=== PATIENT | female | born 1980 | race Caucasian/White ===

== ENCOUNTER 2019-07-30 14:13 | Inpatient (IN) | payer OTHER ==
[2019-07-30 14:52] VITALS: BMI 18.8
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
[2019-07-30] MEDS ORDERED: BISMUTH SUBSALICYLATE 524 MG/30 ML UD PO PRN (17:11)
[2019-07-30] MEDS ORDERED: MAGNESIUM HYDROX 2400MG/30ML ORAL SUSPENSION 30 ML CUP PO PRN (17:11)
[2019-07-30] MEDS ORDERED: cloNIDine HCL 0.1 MG TABLET PO PRN (17:11)
[2019-07-30] MEDS ORDERED: MAGNESIUM CITRATE 300 ML BOTTLE PO PRN (17:11)
[2019-07-30] MEDS ORDERED: MELATONIN 5 MG TABLETS PO PRN (17:11)
[2019-07-30] MEDS ORDERED: MAG HYDROX/AL HYDROX/SIMETH 30 ML UNIT-DOSE CUP PO PRN (17:11)
[2019-07-30] MEDS ORDERED: hydrOXYzine PAMOATE 25 MG CAPSULE (FP) PO PRN (17:11)
[2019-07-30] MEDS ORDERED: METHOCARBAMOL 500 MG TABLET PO PRN (17:11)
[2019-07-30] MEDS ORDERED: IBUPROFEN 400 MG TABLET (FP) PO PRN (17:11)
[2019-07-30] MEDS ORDERED: MENTHOL/PHENOL 1 EACH UD MM PRN (17:11)
[2019-07-30] MEDS ORDERED: ACETAMINOPHEN 325 MG TABLET (FP) PO PRN ×2 (17:11)
[2019-07-30] MEDS ORDERED: METHADONE HCL 10 MG TABLET (FOR DETOX USE ONLY) PO ONE (18:15)
[2019-07-30] MEDS: THIAMINE HCL 100 MG TABLET (FP) PO SCH (22:34)
[2019-07-31] MEDS ORDERED: METHADONE HCL 5 MG TABLET (FOR DETOX USE ONLY) ONE (08:22)
[2019-07-31] MEDS ORDERED: METHADONE HCL 10 MG TABLET (FOR DETOX USE ONLY) ONE (08:22)
[2019-07-31 09:51] LABS: HEMATOCRIT 38.1 % (32.4-45.2); HEMOGLOBIN 12.6 GM/dL (10.7-15.3); MCH 28.5 pg (25.7-33.7); MCHC 33.1 g/dl (32.0-36.0); MEAN CELL VOLUME 86.2 fl (80-96); MEAN PLT VOLUME 10.4 fl (7.5-11.1); PLATELET COUNT 272 K/MM3 (134-434); RBC 4.42 M/mm3 (3.60-5.2); RDW 14.5 % (11.6-15.6); WHITE BLOOD COUNT 10.8 K/mm3 (4.0-10.0)
[2019-07-31] MEDS ORDERED: METHADONE (DETOX) 20 MG, METHADONE (DETOX) 5 MG PO ONE (10:00)
[2019-07-31 10:20] LABS: ALBUMIN 3.2 g/dl (3.4-5.0); BILIRUBIN,TOTAL 0.2 mg/dL (0.2-1); BLOOD UREA NITROGEN 14.9 mg/dL (7-18); CALCIUM 8.3 mg/dL (8.5-10.1); CREATININE 0.7 mg/dL (0.55-1.3); POTASSIUM 4.6 mmol/L (3.5-5.1); TOT PROT 5.7 g/dl (6.4-8.2)
[2019-07-31] MEDS: PRENATAL VITAMINS W/ FOLIC ACID TABLET (FP) PO SCH (10:48)
[2019-07-31] MEDS ORDERED: diazePAM 5 MG TABLET PO PRN (12:42)
--- NOTE | 2019-07-31 12:49 | PN ---
S COWS - Scale Resting Pulse: 0= [place] 80 or Below Sweatin= No chills or Flushing Restless Observation: 1= Difficult to Sit Still Pupil Size: 1= Pupils >than Normal Bone or Joint Aches: 2= Severe Diffuse Aches Runny Nose/ Eye Tearin= Runny Nose/Eyes GI Upset > 30mins: 2= Nausea/Diarrhea Tremor Observation of Outstretched Hands: 2= Slight Tremor Visible Yawning Observation: 1= 1-2x During Session Anxiety or Irritability: 2=Irritable/Anxious Goose Flesh Skin: 0=Smooth Skin COWS Score: 13 S Progress Note (SOAP) Subjective: alert,irritable,anxious,interrupted sleep,tremir,pain in the body and back Objective: 07/31/19 12:45 Vital Signs Temperature 96.4 F L 07/31/19 09:17 Pulse Rate 64 07/31/19 09:17 Respiratory Rate 18 07/31/19 09:17 Blood Pressure 93/58 L 07/31/19 09:17 O2 Sat by Pulse Oximetry (%) Laboratory Last Values WBC 10.8 K/mm3 (4.0-10.0) H 07/31/19 07:10 RBC 4.42 M/mm3 (3.60-5.2) 07/31/19 07:10 Hgb 12.6 GM/dL (10.7-15.3) 07/31/19 07:10 Hct 38.1 % (32.4-45.2) 07/31/19 07:10 MCV 86.2 fl (80-96) 07/31/19 07:10 MCH 28.5 pg (25.7-33.7) 07/31/19 07:10 MCHC 33.1 g/dl (32.0-36.0) 07/31/19 07:10 RDW 14.5 % (11.6-15.6) 07/31/19 07:10 Plt Count 272 K/MM3 (134-434) 07/31/19 07:10 MPV 10.4 fl (7.5-11.1) 07/31/19 07:10 Sodium 139 mmol/L (136-145) 07/31/19 07:10 Potassium 4.6 mmol/L (3.5-5.1) 07/31/19 07:10 Chloride 107 mmol/L (98-107) 07/31/19 07:10 Carbon Dioxide 31 mmol/L (21-32) 07/31/19 07:10 Anion Gap 2 MMOL/L (8-16) L 07/31/19 07:10 BUN 14.9 mg/dL (7-18) 07/31/19 07:10 Creatinine 0.7 mg/dL (0.55-1.3) 07/31/19 07:10 Est GFR (CKD-EPI)AfAm 127.39 07/31/19 07:10 Est GFR (CKD-EPI)NonAf 109.91 07/31/19 07:10 Random Glucose 76 mg/dL (74-106) 07/31/19 07:10 Calcium 8.3 mg/dL (8.5-10.1) L 07/31/19 07:10 Total Bilirubin 0.2 mg/dL (0.2-1) 07/31/19 07:10 AST 24 U/L (15-37) 07/31/19 07:10 ALT 28 U/L (13-61) 07/31/19 07:10 Alkaline Phosphatase 89 U/L (45-117) 07/31/19 07:10 Total Protein 5.7 g/dl (6.4-8.2) L 07/31/19 07:10 Albumin 3.2 g/dl (3.4-5.0) L 07/31/19 07:10 POC Urine HCG, Qual Negative 07/30/19 15:50 RPR Titer Nonreactive (NONREACTIVE) 07/31/19 07:10 Assessment: 07/31/19 12:46 withdrawal symptom Plan: continue detox,wbc 10,800,possible dehydration,advise plenty of fluid,continue methadone regimen,repeat cbc in am, add valium 10 mgs po q4hrs prn for 72 hrs
--- NOTE | 2019-07-31 16:30 | CONSULT ---
[facility] Psychiatric Consult - Data Date of interview: 07/31/19 Admission source: [facility] Identifying data: Patient is approached at bedside for psychiatric interview. Ms Cerda declined TWICE. Nursing staff is made aware.
[2019-07-31] MEDS: THIAMINE HCL 100 MG TABLET (FP) PO SCH (22:25)
[2019-08-01] MEDS ORDERED: METHADONE HCL 10 MG TABLET (FOR DETOX USE ONLY) PO ONE (10:00)
--- NOTE | 2019-08-01 10:17 | PN ---
[facility] COWS - Scale Resting Pulse: 0= [place] 80 or Below Sweatin= Chills/Flushing Restless Observation: 0= Sits Still Pupil Size: 1= Pupils >than Normal Bone or Joint Aches: 1= Mild Discomfort Runny Nose/ Eye Tearin= Nasal Congestion GI Upset > 30mins: 1= Stomach Cramp Tremor Observation of Outstretched Hands: 2= Slight Tremor Visible Yawning Observation: 1= 1-2x During Session Anxiety or Irritability: 2=Irritable/Anxious Goose Flesh Skin: 0=Smooth Skin COWS Score: 10 [facility] Progress Note (SOAP) Subjective: 38 years old female admitted on 07/30/19 for opiate withdrawal sx management treated with methadone detox regimen ate breakfast tolerated food and fluid well resting on bed feeling tired discuss medication assisted treatment program Objective: 08/01/19 10:17 Vital Signs Temperature 97.1 F L 08/01/19 09:36 Pulse Rate 67 08/01/19 09:36 Respiratory Rate 18 08/01/19 09:36 Blood Pressure 99/47 L 08/01/19 09:36 O2 Sat by Pulse Oximetry (%) Laboratory Last Values WBC 10.8 K/mm3 (4.0-10.0) H 07/31/19 07:10 RBC 4.42 M/mm3 (3.60-5.2) 07/31/19 07:10 Hgb 12.6 GM/dL (10.7-15.3) 07/31/19 07:10 Hct 38.1 % (32.4-45.2) 07/31/19 07:10 MCV 86.2 fl (80-96) 07/31/19 07:10 MCH 28.5 pg (25.7-33.7) 07/31/19 07:10 MCHC 33.1 g/dl (32.0-36.0) 07/31/19 07:10 RDW 14.5 % (11.6-15.6) 07/31/19 07:10 Plt Count 272 K/MM3 (134-434) 07/31/19 07:10 MPV 10.4 fl (7.5-11.1) 07/31/19 07:10 Sodium 139 mmol/L (136-145) 07/31/19 07:10 Potassium 4.6 mmol/L (3.5-5.1) 07/31/19 07:10 Chloride 107 mmol/L (98-107) 07/31/19 07:10 Carbon Dioxide 31 mmol/L (21-32) 07/31/19 07:10 Anion Gap 2 MMOL/L (8-16) L 07/31/19 07:10 BUN 14.9 mg/dL (7-18) 07/31/19 07:10 Creatinine 0.7 mg/dL (0.55-1.3) 07/31/19 07:10 Est GFR (CKD-EPI)AfAm 127.39 07/31/19 07:10 Est GFR (CKD-EPI)NonAf 109.91 07/31/19 07:10 Random Glucose 76 mg/dL (74-106) 07/31/19 07:10 Calcium 8.3 mg/dL (8.5-10.1) L 07/31/19 07:10 Total Bilirubin 0.2 mg/dL (0.2-1) 07/31/19 07:10 AST 24 U/L (15-37) 07/31/19 07:10 ALT 28 U/L (13-61) 07/31/19 07:10 Alkaline Phosphatase 89 U/L (45-117) 07/31/19 07:10 Total Protein 5.7 g/dl (6.4-8.2) L 07/31/19 07:10 Albumin 3.2 g/dl (3.4-5.0) L 07/31/19 07:10 POC Urine HCG, Qual Negative 07/30/19 15:50 RPR Titer Nonreactive (NONREACTIVE) 07/31/19 07:10 lab noted Assessment: 08/01/19 10:17 opiate withdrawal sx Plan: continue methadone detox regimen
[2019-08-01] MEDS: PRENATAL VITAMINS W/ FOLIC ACID TABLET (FP) PO SCH (10:40)
[2019-08-01 13:30] VITALS: BP 115/59; PULSE 69; TEMP 96.6
[2019-08-02] MEDS ORDERED: METHADONE (DETOX) 10 MG, METHADONE (DETOX) 5 MG PO ONE (10:00)
[2019-08-03] MEDS ORDERED: METHADONE HCL 10 MG TABLET (FOR DETOX USE ONLY) PO ONE (10:00)
[2019-08-04] MEDS ORDERED: METHADONE HCL 5 MG TABLET (FOR DETOX USE ONLY) PO ONE (06:00)
== END 2019-08-01 17:55 | disposition left against medical advice (07) | DRG 770 ==
LOC: YASAS 14:13 → Y3N 17:42
PROVIDERS: ADMIT Allergy & Immunology; ATTEND Allergy & Immunology
PROC: HZ2ZZZZ Detoxification Services for Substance Abuse Treatment (ICD-10-PCS; principal; 2019-07-30)
DX: F11.23 Opioid dependence with withdrawal (principal); F14.20 Cocaine dependence, uncomplicated; F17.210 Nicotine dependence, cigarettes, uncomplicated; F31.9 Bipolar disorder, unspecified; J45.909 Unspecified asthma, uncomplicated; Z86.2 Personal history of diseases of the blood and blood-forming organs and certain disorders involving the immune mechanism; Z87.81 Personal history of (healed) traumatic fracture; Z88.2 Allergy status to sulfonamides; Z91.013 Allergy to seafood; Z91.5 Personal history of self-harm; Z59.0 Homelessness
CPT/HCPCS: 36415; 80053; 81025; 85027; 86593

== ENCOUNTER 2019-09-04 23:36 | Inpatient (IN) | payer OTHER ==
--- NOTE | 2019-09-04 19:11 | HP ---
COWS - Scale Resting Pulse: 0= [place] 80 or Below Sweatin= No chills or Flushing Restless Observation: 5= Unable to Sit Still Pupil Size: 0= Normal to Room Light Bone or Joint Aches: 4=Acute Joint/Muscle Pain Runny Nose/ Eye Tearin= Nasal Congestion GI Upset > 30mins: 0= None Tremor Observation: 0= None Yawning Observation: 0= None Anxiety or Irritability: 4=Extreme Anxiety Goose Flesh Skin: 0=Smooth Skin COWS Score: 14 CIWA Score - Admission Criteria OASAS Guidelines: Admission for Medically Managed Detox: Requires at least one of the followin. CIWA greater than 12 2. Seizures within the past 24 hours 3. Delirium tremens within the past 24 hours 4. Hallucinations within the past 24 hours 5. Acute intervention needed for co occurring medical disorder 6. Acute intervention needed for co occurring psychiatric disorder 7. Severe withdrawal that cannot be handled at a lower level of care (continued vomiting, continued diarrhea, abnormal vital signs) requiring intravenous medication and/or fluids 8. Admitting History and Physical - Smoking History Smoking history: Current every day smoker Have you smoked in the past 12 months: Yes Aproximately how many cigarettes per day: 20 - Alcohol/Substance Use Hx Alcohol Use: No Admission ROS S - HPI Chief Complaint: SEEKING HEROIN DETOX Allergies/Adverse Reactions: Allergies Allergy/AdvReac Type Severity Reaction Status Date / Time Fish Containing Products Allergy Intermediate Hives Verified 09/04/19 17:42 shellfish derived Allergy Intermediate Hives Verified 09/04/19 17:42 Sulfa (Sulfonamide Allergy Intermediate Hives Verified 09/04/19 17:42 Antibiotics) sulfamethoxazole Allergy Intermediate Hives Verified 09/04/19 17:42 [From Bactrim] trimethoprim [From Bactrim] Allergy Intermediate Hives Verified 09/04/19 17:42 SEAFOOD Allergy Intermediate Hives Uncoded 09/04/19 17:42 History of Present Illness: HERE FOR HEROIN DETOX. CLIENT IS SELF REFERRED. KNOWN TO PROGRAM. LAST HERE NOV. REPORTS RELAPSING IMMEDIATELY AFTER DC. SHE PRESENTS TODAY WITH C/O ON WORSENING WITHDRAWAL SX'S LEADING TO ONGOING USE OF HEROIN. SHE ALSO IS COCAINE DEPENDENT. DAILY USE OF BOTH SUBSTANCES. LAST USE EARLIER TODAY. PT IS VERY SEDATED UNABLE TO STAY AWAKE TO ANSWER QUESTIONS. SHE IS ALSO NOTED WITH PERIODS OF AGITATION PUNCHING SELF AND SCRATCHING AND FALLING DEEP SLEEP . SHE IS AROUSABLE . PUPILS ARE REACTIVE. PER STAFF PT PRESENTED A/O X3 NAD COHERENT. WENT TO THE BATHROOM AND CAME OUT WITH [facility] BEHAVIOR CRYING EPISODES FOLLOWED BY [facility], PACING UNIT, UNABLE TO STAY STILL THEN NOW SHE IS SEDATED BUT AROUSABLE WITH PERIOD OF JUMPING UP IN SLEEP PUNCHING SELF AND SCRATCHING SELF AND FALLING client returns from [facility] after being medically cleared. she was given narcan and responsed well. homeless, unemployed, denies legals. longest clean time 5 years.denies any in the past year. denies hx/o ivdu, + overdose x4 last being 2 weeks ago Exam Limitations: No Limitations - Ebola screening Have you traveled outside of the country in the last 21 days: No (N) Have you had contact with anyone from an Ebola affected area: No Do you have a fever: No - Review of Systems Constitutional: Chills EENT: reports: No Symptoms Reported Respiratory: reports: No Symptoms reported Cardiac: reports: No Symptoms Reported GI: reports: No Symptoms Reported : reports: No Symptoms Reported Musculoskeletal: reports: No Symptoms Reported Integumentary: reports: No Symptoms Reported Neuro: reports: No Symptoms reported Endocrine: reports: No Symptoms Reported Hematology: reports: Anemia Psychiatric: reports: Orientated x3, Agitated (iitiable), Anxious, Depressed ( denies si) Other Systems: Reviewed and Negative Patient History - Patient Medical History Hx Anemia: Yes Hx Asthma: Yes Hx Chronic Obstructive Pulmonary Disease (COPD): No Hx Cancer: No Hx Cardiac Disorders: No Hx Congestive Heart Failure: No Hx Hypertension: No Hx Hypercholesterolemia: No Hx Pacemaker: No HX Cerebrovascular Accident: No Hx Seizures: No Hx Dementia: No Hx Diabetes: No Hx Gastrointestinal Disorders: No Hx Liver Disease: No Hx Genitourinary Disorders: No Hx Sexually Transmitted Disorders: No Hx Renal Disease (ESRD): No Hx Thyroid Disease: No Hx Human Immunodeficiency Virus (HIV): No Hx Hepatitis C: No Hx Depression: Yes Hx Suicide Attempt: Yes (2016- pill overdose) Hx Bipolar Disorder: Yes Hx Schizophrenia: No - Patient Surgical History Past Surgical History: No Hx Neurologic Surgery: No Hx Cataract Extraction: No Hx Cardiac Surgery: No Hx Lung Surgery: No Hx Breast Surgery: No Hx Breast Biopsy: No Hx Abdominal Surgery: No Hx Appendectomy: No Hx Cholecystectomy: No Hx Genitourinary Surgery: No Hx Section: No Hx Orthopedic Surgery: No Hx Hysterectomy: No Anesthesia Reaction: No - PPD History Previous Implant?: Yes Documented Results: Negative w/proof Implanted On Prior [facility] Admission?: Yes Date: 12/20/17 Results: 0mm PPD to be Administered?: Yes - Reproductive History Patient is a Female of Child Bearing Age (11 -55 yrs old): Yes Last Menstrual Period: 08/17/19 LMP comment: irreg Patient : No ([place] [facility] [place] - Smoking Cessation Smoking history: Current every day smoker Have you smoked in the past 12 months: Yes Aproximately how many cigarettes per day: 20 Cigars Per Day: 0 Hx Chewing Tobacco Use: No Initiated information on smoking cessation: No 'Breaking Loose' booklet given: 09/04/19 - Substance & Tx. History Hx Alcohol Use: No Hx Substance Use: Yes Substance Use Type: Cocaine, Heroin Hx Substance Use Treatment: Yes ([facility]) - Substances abused Heroin Substance route: Inhalation Frequency: Daily Amount used: 2 BUNDLES Age of first use: 36 Date of last use: 09/04/19 Cocaine Substance route: Smoking Frequency: Daily Amount used: $150-200 Age of first use: 18 Date of last use: 09/04/19 Admission Physical Exam S - Vital Signs Vital Signs: Vital Signs - 24 hr 09/04/19 09/04/19 17:40 18:05 Temperature 95.1 F L 95.1 F L Pulse Rate 68 68 Respiratory 16 16 Rate Blood Pressure 92/54 L 92/54 L - Physical General Appearance: Yes: Mild Distress, Anxious HEENTM: Yes: EOMI, Normocephalic, Normal Voice, [place], Pharynx Normal Respiratory: Yes: Chest Non-Tender, Lungs Clear, Normal Breath Sounds, No Respiratory Distress, No Accessory Muscle Use Neck: Yes: No masses,lesions,Nodules, Supple, Trachea in good position Breast: Yes: Breast Exam Deferred Cardiology: Yes: Regular Rhythm, Regular Rate, S1, S2 Abdominal: Yes: Normal Bowel Sounds, Non Tender, Soft Genitourinary: Yes: Within Normal Limits Back: Yes: Normal Inspection Musculoskeletal: Yes: full range of Motion, Gait Steady Extremities: Yes: Normal Capillary Refill, Normal Range of Motion, Non-Tender, Tremors Neurological: Yes: Fully Oriented, Alert, Motor Strength 5/5 Integumentary: Yes: Dry, Warm Lymphatic: Yes: Within Normal Limits - Diagnostic (1) Cocaine dependence with withdrawal Current Visit: Yes Status: Acute (2) Psychiatric disorder Current Visit: Yes Status: Acute (3) Nicotine dependence Current Visit: No Status: Acute Qualifiers: Substance use status: uncomplicated (4) Opioid dependence with withdrawal Current Visit: No Status: Acute (5) Homeless Current Visit: Yes Status: Acute Cleared for Admission S - Detox or Rehab [facility] Level of Care: Medically Managed Detox Regimen/Protocol: Methadone Claeared for Rehab Admission: No Screened but not Admitted - Documentation of Visit Screened but not Admitted: Yes Left Prior to Completion of Assessment: No Insurance Authorization Denied: No Patient Does Not Meet Criteria for Admission: Yes Level of Care Recommended at this Time: ER Evaluation/Care Additional Information/Explanation: client transferred to [facility] for erratic behavior.periods of awakeness and then falling alseep noted. client with crying episodes. waking from sleep punching self and pulling hair, paranoia. a/o x3 drowsiness/ sedated but arousable to verbal stimuli. as per staff client is with change of mental status as she did not arrive to program in the state. vss Breathalyzer - Breathalyzer Breathalyzer: 0 Urine Drug Screen - Test Device Lot number: [id number] Expiration date: 04/17/21 - Control Is test valid?: Yes - Results Drug screen NEGATIVE: No Urine drug screen results: ATIF-Cocaine, FEN-Fentanyl, MOP-Opiates Inpatient Rehab Admission - Rehab Decision to Admit Inpatient rehab admission?: No
[2019-09-04 23:47] VITALS: BMI 17.4
--- NOTE | 2019-09-04 23:58 | HP ---
COWS - Scale Resting Pulse: 0= [place] 80 or Below Sweatin= No chills or Flushing Restless Observation: 5= Unable to Sit Still Pupil Size: 0= Normal to Room Light Bone or Joint Aches: 4=Acute Joint/Muscle Pain Runny Nose/ Eye Tearin= Nasal Congestion GI Upset > 30mins: 0= None Tremor Observation: 0= None Yawning Observation: 0= None Anxiety or Irritability: 4=Extreme Anxiety Goose Flesh Skin: 0=Smooth Skin COWS Score: 14 CIWA Score - Admission Criteria OASAS Guidelines: Admission for Medically Managed Detox: Requires at least one of the followin. CIWA greater than 12 2. Seizures within the past 24 hours 3. Delirium tremens within the past 24 hours 4. Hallucinations within the past 24 hours 5. Acute intervention needed for co occurring medical disorder 6. Acute intervention needed for co occurring psychiatric disorder 7. Severe withdrawal that cannot be handled at a lower level of care (continued vomiting, continued diarrhea, abnormal vital signs) requiring intravenous medication and/or fluids 8. Admitting History and Physical - Past Medical History ...LMP: 08/17/19 ...LMP Comment: irreg ...: No (neg [facility] [place]) - Smoking History Smoking history: Current every day smoker Have you smoked in the past 12 months: Yes Aproximately how many cigarettes per day: 20 - Alcohol/Substance Use Hx Alcohol Use: No Admission ROS S - HPI Chief Complaint: SEEKING DETOX FOR HEROIN Allergies/Adverse Reactions: Allergies Allergy/AdvReac Type Severity Reaction Status Date / Time Fish Containing Products Allergy Intermediate Hives Verified 09/04/19 17:42 shellfish derived Allergy Intermediate Hives Verified 09/04/19 17:42 Sulfa (Sulfonamide Allergy Intermediate Hives Verified 09/04/19 17:42 Antibiotics) sulfamethoxazole Allergy Intermediate Hives Verified 09/04/19 17:42 [From Bactrim] trimethoprim [From Bactrim] Allergy Intermediate Hives Verified 09/04/19 17:42 SEAFOOD Allergy Intermediate Hives Uncoded 09/04/19 17:42 History of Present Illness: client returns from [facility] after being medically cleared. she was given narcan and responsed well. homeless, unemployed, denies legals. longest clean time 5 years.denies any in the past year. denies hx/o ivdu, + overdose x4 last being 2 weeks ago Exam Limitations: No Limitations - Ebola screening Have you traveled outside of the country in the last 21 days: No (N) Have you had contact with anyone from an Ebola affected area: No Do you have a fever: No - Review of Systems Constitutional: Chills EENT: reports: No Symptoms Reported Respiratory: reports: No Symptoms reported Cardiac: reports: No Symptoms Reported GI: reports: No Symptoms Reported : reports: No Symptoms Reported Musculoskeletal: reports: No Symptoms Reported Integumentary: reports: No Symptoms Reported Neuro: reports: No Symptoms reported Endocrine: reports: No Symptoms Reported Hematology: reports: No Symptoms Reported Psychiatric: reports: Orientated x3, Agitated (IRRITABLE), Anxious, Depressed ( DENIES SI) Patient History - Patient Medical History Hx Anemia: Yes Hx Asthma: Yes Hx Chronic Obstructive Pulmonary Disease (COPD): No Hx Cancer: No Hx Cardiac Disorders: No Hx Congestive Heart Failure: No Hx Hypertension: No Hx Hypercholesterolemia: No Hx Pacemaker: No HX Cerebrovascular Accident: No Hx Seizures: No Hx Dementia: No Hx Diabetes: No Hx Gastrointestinal Disorders: No Hx Liver Disease: No Hx Genitourinary Disorders: No Hx Sexually Transmitted Disorders: No Hx Renal Disease (ESRD): No Hx Thyroid Disease: No Hx Human Immunodeficiency Virus (HIV): No Hx Hepatitis C: No Hx Depression: Yes Hx Suicide Attempt: Yes (2016- pill overdose) Hx Bipolar Disorder: Yes Hx Schizophrenia: No - Patient Surgical History Past Surgical History: No Hx Neurologic Surgery: No Hx Cataract Extraction: No Hx Cardiac Surgery: No Hx Lung Surgery: No Hx Breast Surgery: No Hx Breast Biopsy: No Hx Abdominal Surgery: No Hx Appendectomy: No Hx Cholecystectomy: No Hx Genitourinary Surgery: No Hx Section: No Hx Orthopedic Surgery: No Hx Hysterectomy: No Anesthesia Reaction: No - PPD History Previous Implant?: Yes Documented Results: Negative w/proof Implanted On Prior R Admission?: Yes Date: 12/20/17 Results: 0mm PPD to be Administered?: Yes - Reproductive History Last Menstrual Period: 08/17/19 LMP comment: IRREG Patient : No (neg [facility]cg) - Smoking Cessation Smoking history: Current every day smoker Have you smoked in the past 12 months: Yes Aproximately how many cigarettes per day: 20 Cigars Per Day: 0 Hx Chewing Tobacco Use: No Initiated information on smoking cessation: No 'Breaking Loose' booklet given: 09/04/19 - Substance & Tx. History Hx Alcohol Use: Yes Hx Substance Use: Yes Substance Use Type: Cocaine, Heroin Hx Substance Use Treatment: Yes - Substances abused Heroin Substance route: Inhalation Frequency: Daily Amount used: 2 BUNDLES Age of first use: 36 Date of last use: 09/04/19 Cocaine Substance route: Smoking Frequency: Daily Amount used: $150-200 Age of first use: 18 Date of last use: 09/04/[address] [facility] - Vital Signs Vital Signs: Vital Signs - 24 hr 09/04/19 09/04/19 09/04/19 17:40 18:05 23:45 Temperature 95.1 F L 95.1 F L 97.5 F L Pulse Rate 68 68 47 L Respiratory 16 16 18 Rate Blood Pressure 92/54 L 92/54 L 135/69 - Physical General Appearance: Yes: Moderate Distress, Tremorous (FELT), Anxious HEENTM: Yes: EOMI, Normocephalic, Normal Voice, [place], Pharynx Normal Respiratory: Yes: Chest Non-Tender, Lungs Clear, Normal Breath Sounds, No Respiratory Distress, No Accessory Muscle Use Neck: Yes: No masses,lesions,Nodules, Supple, Trachea in good position Breast: Yes: Breasts Symetrical Cardiology: Yes: Regular Rhythm, Regular Rate, S1, S2 Abdominal: Yes: Normal Bowel Sounds, Non Tender, Soft Genitourinary: Yes: Within Normal Limits Back: Yes: Normal Inspection Musculoskeletal: Yes: full range of Motion, Gait Steady Extremities: Yes: Normal Capillary Refill, Normal Range of Motion, Non-Tender, Tremors (FELT) Neurological: Yes: Fully Oriented, Alert, Motor Strength 5/5 Integumentary: Yes: Normal Color, Dry, Warm Lymphatic: Yes: Within Normal Limits - Diagnostic (1) Cocaine dependence with withdrawal Current Visit: Yes Status: Acute (2) Psychiatric disorder Current Visit: Yes Status: Acute (3) Nicotine dependence Current Visit: No Status: Acute Qualifiers: Substance use status: uncomplicated (4) Opioid dependence with withdrawal Current Visit: No Status: Acute (5) Homeless Current Visit: Yes Status: Acute Cleared for Admission [facility] - Detox or Rehab [facility] Level of Care: Medically Managed Detox Regimen/Protocol: Methadone Claeared for Rehab Admission: No Breathalyzer - Breathalyzer Breathalyzer: 0 Urine Drug Screen - Test Device Lot number: [id number] Expiration date: 04/17/21 - Control Is test valid?: Yes - Results Drug screen NEGATIVE: No Urine drug screen results: ATIF-Cocaine, FEN-Fentanyl, MOP-Opiates Inpatient Rehab Admission - Rehab Decision to Admit Inpatient rehab admission?: No
[2019-09-05] MEDS ORDERED: guaiFENesin 200 MG/10 ML 10 ML UNIT-DOSE CUPS PO PRN (00:01)
[2019-09-05] MEDS ORDERED: MENTHOL/PHENOL 1 EACH UD MM PRN (00:01)
[2019-09-05] MEDS ORDERED: P-EPHED 60MG/TRIPROLIDI 2.5MG TABLET PO PRN (00:01)
[2019-09-05] MEDS ORDERED: MAGNESIUM HYDROX 2400MG/30ML ORAL SUSPENSION 30 ML CUP PO PRN (00:01)
[2019-09-05] MEDS ORDERED: cloNIDine HCL 0.1 MG TABLET PO PRN (00:01)
[2019-09-05] MEDS ORDERED: MAGNESIUM CITRATE 300 ML BOTTLE PO PRN (00:01)
[2019-09-05] MEDS ORDERED: DICYCLOMINE HCL 10 MG CAPSULE PO PRN (00:01)
[2019-09-05] MEDS ORDERED: IBUPROFEN 400 MG TABLET (FP) PO PRN (00:01)
[2019-09-05] MEDS ORDERED: ACETAMINOPHEN 325 MG TABLET (FP) PO PRN ×2 (00:01)
[2019-09-05] MEDS ORDERED: METHADONE HCL 10 MG TABLET (FOR DETOX USE ONLY) PO ONE ×2 (00:01→10:00)
[2019-09-05] MEDS ORDERED: NICOTINE POLACRILEX 2 MG GUM BUC PRN (00:01)
[2019-09-05] MEDS ORDERED: ONDANSETRON *ODT* 4 MG TABLET SL PRN (00:01)
[2019-09-05] MEDS ORDERED: MAG HYDROX/AL HYDROX/SIMETH 30 ML UNIT-DOSE CUP PO PRN (00:01)
[2019-09-05] MEDS ORDERED: MELATONIN 5 MG TABLETS PO PRN (00:01)
[2019-09-05] MEDS ORDERED: METHOCARBAMOL 500 MG TABLET PO PRN (00:01)
[2019-09-05] MEDS ORDERED: BISMUTH SUBSALICYLATE 524 MG/30 ML UD PO PRN (00:01)
[2019-09-05] MEDS ORDERED: hydrOXYzine PAMOATE 25 MG CAPSULE (FP) PO PRN (00:01)
[2019-09-05] MEDS ORDERED: NALOXONE HCL 0.4 MG/ML VIAL IM PRN (00:01)
[2019-09-05] MEDS ORDERED: METHADONE HCL 10 MG TABLET PO ONE (10:00)
[2019-09-05] MEDS: PRENATAL VITAMINS W/ FOLIC ACID TABLET (FP) PO SCH (10:58)
[2019-09-05] MEDS: NICOTINE 21 MG/24 HOURS TOPICAL PATCH TD SCH (10:58)
--- NOTE | 2019-09-05 11:52 | PN ---
[facility] COWS - Scale Resting Pulse: 0= [place] 80 or Below Sweatin= Chills/Flushing Restless Observation: 0= Sits Still Pupil Size: 1= Pupils >than Normal Bone or Joint Aches: 1= Mild Discomfort Runny Nose/ Eye Tearin= Nasal Congestion GI Upset > 30mins: 1= Stomach Cramp Tremor Observation of Outstretched Hands: 2= Slight Tremor Visible Yawning Observation: 1= 1-2x During Session Anxiety or Irritability: 2=Irritable/Anxious Goose Flesh Skin: 3=Piloerection COWS Score: 13 [facility] Progress Note (SOAP) Subjective: 39 years old female admitted on 09/04/19 for opiate withdrawal sx management treated with methadone detox regimen ensure 120 ml po tid ambulating on hallway social with peers encourage product picker narcan from pharmacy Objective: 09/05/19 11:54 Vital Signs Temperature 97.3 F L 09/05/19 09:23 Pulse Rate 69 09/05/19 09:23 Respiratory Rate 16 09/05/19 09:23 Blood Pressure 100/57 L 09/05/19 09:23 O2 Sat by Pulse Oximetry (%) 09/05/19 11:54 lab pending Assessment: 09/05/19 11:54 opiate withdrawal Plan: methadone regimen
[2019-09-05] MEDS ORDERED: THIAMINE HCL 100 MG TABLET (FP) PO SCH (22:00)
[2019-09-06] MEDS ORDERED: METHADONE HCL 10 MG TABLET (FOR DETOX USE ONLY) ONE (08:20)
[2019-09-06] MEDS ORDERED: METHADONE HCL 5 MG TABLET (FOR DETOX USE ONLY) ONE (08:20)
[2019-09-06 09:15] VITALS: BP 102/48; PULSE 66; TEMP 96.1
[2019-09-06] MEDS ORDERED: METHADONE (DETOX) 20 MG, METHADONE (DETOX) 5 MG PO ONE (10:00)
[2019-09-06] MEDS: PRENATAL VITAMINS W/ FOLIC ACID TABLET (FP) PO SCH (10:23)
[2019-09-06] MEDS: NICOTINE 21 MG/24 HOURS TOPICAL PATCH TD SCH (10:23)
[2019-09-06 10:36] LABS: HEMATOCRIT 40.1 % (32.4-45.2); MCH 27.7 pg (25.7-33.7); MCHC 32.4 g/dl (32.0-36.0); MEAN CELL VOLUME 85.5 fl (80-96); MEAN PLT VOLUME 9.9 fl (7.5-11.1); PLATELET COUNT 310 K/MM3 (134-434); RBC 4.69 M/mm3 (3.60-5.2); RDW 14.4 % (11.6-15.6); WHITE BLOOD COUNT 8.3 K/mm3 (4.0-10.0)
[2019-09-06 10:47] LABS: ALBUMIN 3.2 g/dl (3.4-5.0); BILIRUBIN,TOTAL 0.2 mg/dL (0.2-1); BLOOD UREA NITROGEN 14.2 mg/dL (7-18); CREATININE 0.6 mg/dL (0.55-1.3); POTASSIUM 4.7 mmol/L (3.5-5.1); TOT PROT 6.4 g/dl (6.4-8.2)
--- NOTE | 2019-09-06 11:11 | DS ---
[facility] Detox Discharge Summary Admission Date: 09/04/19 Discharge Date: 09/06/19 - History Present History: Opioid Dependence Pertinent Past History: Pt wants to leave today. Very angry when asked why she wants to leave. d/w pt alf treatment with MAT- pt states she wants to be on no substances. Pt has h/o overdoses needing narcan. D/w pt to meet with counselor. Narcan sent to pharmacy- pt states she knows where to get one - Physical Exam Results Vital Signs: Vital Signs Temperature 96.1 F L 09/06/19 09:14 Pulse Rate 66 09/06/19 09:14 Respiratory Rate 16 09/06/19 09:14 Blood Pressure 102/48 L 09/06/19 09:14 O2 Sat by Pulse Oximetry (%) - Medication Discharge Medications: Ambulatory Orders Naloxone HCl [Narcan] 4 mg NS ASDIR PRN #1 spray 09/05/19 - AMA Did Patient Leave Against Medical Advice: Yes
[2019-09-07] MEDS ORDERED: METHADONE HCL 10 MG TABLET (FOR DETOX USE ONLY) PO ONE (10:00)
[2019-09-08] MEDS ORDERED: METHADONE (DETOX) 10 MG, METHADONE (DETOX) 5 MG PO ONE (10:00)
[2019-09-09] MEDS ORDERED: METHADONE HCL 10 MG TABLET (FOR DETOX USE ONLY) PO ONE (10:00)
[2019-09-10] MEDS ORDERED: METHADONE HCL 5 MG TABLET (FOR DETOX USE ONLY) PO ONE (06:00)
== END 2019-09-06 11:20 | disposition left against medical advice (07) | DRG 770 ==
LOC: YASAS 23:36 → Y3N 23:51
PROVIDERS: ADMIT Allergy & Immunology; ATTEND Allergy & Immunology
PROC: HZ2ZZZZ Detoxification Services for Substance Abuse Treatment (ICD-10-PCS; principal; 2019-09-04)
DX: F11.23 Opioid dependence with withdrawal (principal); F14.20 Cocaine dependence, uncomplicated; F17.210 Nicotine dependence, cigarettes, uncomplicated; F99 Mental disorder, not otherwise specified; J45.909 Unspecified asthma, uncomplicated; Z91.013 Allergy to seafood; Z88.1 Allergy status to other antibiotic agents; Z88.2 Allergy status to sulfonamides; Z91.5 Personal history of self-harm; Z59.0 Homelessness
CPT/HCPCS: 36415; 80053; 85027; 86593